=== PATIENT | female | born 1980 | race Caucasian/White ===

== ENCOUNTER 2020-12-20 13:33 | Outpatient (CLI) | payer BC | END 2020-12-20 13:34 | disposition home or self-care (01) | LOC: BICULT 13:33 | PROVIDERS: ATTEND Family Medicine | DX: Z12.31 Encounter for screening mammogram for malignant neoplasm of breast (principal); N94.6 Dysmenorrhea, unspecified; Z98.82 Breast implant status | CPT/HCPCS: 76856; 77063; 77067; 93976 ==